=== PATIENT | female | born 1980 | race Caucasian/White ===

== ENCOUNTER 2020-01-22 07:10 | Outpatient (CLI) | payer BC ==
[2020-01-22 13:02] LABS: #Monocytes 0.3 thou/uL (0.11-0.59); #Neutrophils 4.4 thou/uL (1.40-6.50); %Basophils 0.5 % (0.0-1.0); %Eosinophils 0.3 % (0.0-10.0); %Monocytes 4.9 % (0.0-10.0); %Neutrophils 64.3 % (42.0-75.0); Hemoglobin 14.1 g/dL (12.0-16.0); Mean Corpuscular HGB CONC 33.9 g/dL (32.0-36.0); Mean Corpuscular Hemoglobin 30.8 pg (27.0-31.0); Mean Platelet Volume 7.9 fL (7.4-10.4); Platelet Count 202 thou/uL (130-400); RBC Distribution Width 11.5 % (11.5-14.5); Red Blood Cell (RBC) Count 4.58 mill/uL (4.20-5.40); White Blood Cell (WBC) Count 6.8 thou/uL (4.8-10.8)
[2020-01-22 13:24] LABS: Anion Gap 11 mmol/L (10-20); BUN (Urea Nitrogen) 10 mg/dL (7.0-18.7); Calc. Creatinine Clearance 0 mL/min (70-130); Carbon Dioxide 26 mmol/L (22-29); Chloride 104 mmol/L (98-107); Estimated GFR-MDRD Greater than 90; Glucose 101 mg/dL (70-105); Potassium 3.9 mmol/L (3.5-5.1); Sodium 137 mmol/L (136-145)
== END 2020-01-22 07:11 | disposition home or self-care (01) ==
LOC: LABBT 07:10
PROVIDERS: ATTEND Specialist
DX: Z01.812 Encounter for preprocedural laboratory examination (principal); G90.521 Complex regional pain syndrome I of right lower limb
CPT/HCPCS: 80048; 85025

== ENCOUNTER 2020-01-26 06:13 | Inpatient (IN) | payer BC ==
--- NOTE | 2020-01-26 06:17 | HP ---
HISTORY OF PRESENT ILLNESS: Ruth Ann Painter is a 39-year-old female, who fell down stairs in August 2017. Since that time, she has developed a severe pain syndrome in her right leg, where she has lost use of her right foot and knee. The pain is progressing up her leg to above the knee. The patient has been evaluated by multiple neurologists and neurosurgeons and pain management without relief. She has had CAT scans, MRI scans, trials of spinal cord stimulators, pain pump trials without relief. She has tried gabapentin and Lyrica with adverse side effects. She has severe hyperesthesias of her right leg to above her knee. The pain is currently somewhat controlled, although inadequately with [place] 10s, Xanax, oxycodone, progesterone, etc. She has exhausted her resources and now is speaking to me about amputation. Dr. Kuhn called and asked about doing a hip disarticulation. The patient does have mobility in her hip. She is hoping to save some of her thigh for prosthesis better function. The patient does go to [place] periodically for ketamine infusions to help with control of her pain. After receiving these, she feels much better for a period of time until the pain begins again and then she reports back. The patient and her are in my office today. 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 She hopes to return to work as soon as possible. She is 2, para 2, and her life has been altered by this pain syndrome. ALLERGIES: PENICILLIN AND DERMABOND, WHICH CAUSED RASH AND HIVES. SOCIAL HISTORY: Tobacco, none. Alcohol, none. MEDICATIONS: 1. Hydrocodone 10/325 daily. 2. Xanax 1 mg a day. 3. Xanax ER 1 mg at bedtime. 4. Oxycodone 20 mg at bedtime. 5. Nature-Throid daily. 6. Estradiol daily. 7. Progesterone daily. 8. Vitamin D daily. PAST MEDICAL HISTORY: Noncontributory except for the complex pain syndrome that she has. 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 Hysterectomy, total for endometriosis; laparoscopies prior to that; appendectomy prior to that; eardrum reconstruction. REVIEW OF SYSTEMS: Ten-point noncontributory. FAMILY HISTORY: Noncontributory. PHYSICAL EXAMINATION: GENERAL: She is in a wheelchair with right leg extension. She has severe hypesthesias of her right leg, foot, to above the knee. She has a right foot drop, she cannot move her ankle or knee. LUNGS: Clear to auscultation. CARDIAC: Regular rate and rhythm without murmur or gallop. ABDOMEN: Soft, nontender. NEUROLOGIC: Intact otherwise. SKIN: Discoloration of her skin below her knee, right. ASSESSMENT AND PLAN: Severe pain syndrome, reflex sympathetic dystrophy type, right leg with paralysis. She is disabled by the pain. The pain is progressive. Pain management is as described above. We have talked about right tguvk-jho-lhum amputation and talked about the level of amputation to alleviate her pain. We want the amputation high enough to alleviate her pain, but low enough to allow function of her prosthesis best. She understands risks and benefits, and consents. She will speak to anesthesiologist before the operation to consider anesthetic modalities to minimize her postoperative pain. Consideration of postoperative rehab can be given. She is already skilled in transfers and mobility and may be able to be discharged to home. We will plan this operation at a time considering her pain progression and the COVID situation. Job ID: [id number]
[2020-01-26] MEDS ORDERED: Acetaminophen 500 MG TAB ONE (06:25)
[2020-01-26] MEDS ORDERED: Levofloxacin 500 mg/D5W 100 ml Premix Bag ONE (06:45)
[2020-01-26] MEDS ORDERED: Ketorolac Tromethamine 30 MG/ML VIAL ONE (07:08)
[2020-01-26] MEDS ORDERED: Fentanyl 250 MCG/5 ML VIAL ONE (07:12)
[2020-01-26] MEDS ORDERED: HYDROmorphone 2 MG/ML VIAL ONE (07:13)
[2020-01-26] MEDS ORDERED: Ketamine 50 MG/ML (10ML VIAL) ONE (07:13)
[2020-01-26] MEDS ORDERED: Midazolam HCl 2 mg/2 ml Vial ONE (07:14)
[2020-01-26] MEDS ORDERED: Scopolamine 1.5 mg/72 hour Patch ONE (07:19)
[2020-01-26] MEDS ORDERED: Ropivacaine 0.2% HCl/PF 20 ML ONE (07:49)
[2020-01-26] MEDS ORDERED: Ondansetron ODT 4 MG TAB PO PRN (09:13)
[2020-01-26] MEDS ORDERED: Promethazine HCl 25 MG SUPP PR PRN (09:15)
[2020-01-26] MEDS ORDERED: Bupivacaine 0.25% 10 ML VIAL EPIDURAL PRN (09:15)
[2020-01-26] MEDS ORDERED: HYDROcodone/Acetaminophen 5/325 mg Tablet PO PRN (09:15)
[2020-01-26] MEDS ORDERED: diphenhydrAMINE 50 MG/ML VIAL IVP PRN (09:15)
[2020-01-26] MEDS ORDERED: Naloxone HCl 0.4 mg/ml Vial IV PRN (09:15)
[2020-01-26] MEDS ORDERED: diphenhydrAMINE 25 MG CAP PO PRN (09:15)
[2020-01-26] MEDS ORDERED: Zolpidem Tartrate 5 MG TAB PO PRN (09:15)
[2020-01-26] MEDS ORDERED: diphenhydrAMINE 50 MG/ML VIAL IM PRN (09:15)
[2020-01-26] MEDS ORDERED: Hydrocerin (Eucerin) Cream 120 gm Jar TOP PRN (09:15)
[2020-01-26] MEDS ORDERED: Naloxone HCl 0.4 mg/ml Vial IVP PRN (09:15)
[2020-01-26] MEDS ORDERED: Promethazine HCl 25 MG/ML VIAL IM PRN (09:15)
[2020-01-26] MEDS ORDERED: SUMATRIPTAN SUCCINATE 100 MG PO PRN (09:27)
[2020-01-26] MEDS ORDERED: HYDROcodone/Acetaminophen 10/325 mg Tablet PO PRN (09:27)
[2020-01-26] MEDS ORDERED: SUMAtriptan Succinate 50 MG TAB PO PRN (09:40)
[2020-01-26] MEDS ORDERED: Promethazine HCl 25 MG/ML VIAL ONE (09:48)
[2020-01-26] MEDS ORDERED: PROPOFOL 200 MG/20 ML VIAL ONE (10:31)
[2020-01-26] MEDS ORDERED: Rocuronium Bromide 10 MG/ML (10ML VIAL) ONE (10:31)
[2020-01-26] MEDS ORDERED: Glycopyrrolate 0.2 MG/ML 5 ML SYRINGE ONE (10:31)
[2020-01-26] MEDS ORDERED: Dexamethasone 20 MG/5 ML VIAL ONE (10:31)
[2020-01-26] MEDS ORDERED: Ondansetron PF 4 MG/2 ML Vial ONE (10:31)
[2020-01-26] MEDS ORDERED: EPHEDRINE 25 MG/5 ML SYRINGE ONE (10:31)
[2020-01-26] MEDS ORDERED: Lidocaine 1% PF 5 ML VIAL ONE (10:36)
[2020-01-26 11:13] VITALS: BMI 27.3
[2020-01-26] MEDS: Ketorolac Tromethamine 30 MG/ML VIAL IVP SCH ×3 (11:55→23:49)
[2020-01-26] MEDS ORDERED: Gabapentin 300 MG CAP PO SCH (12:00)
[2020-01-26] MEDS: HYDROcodone/Acetaminophen 5/325 mg Tablet PO PRN ×3 (12:04→21:05)
[2020-01-26] MEDS ORDERED: ALPRAZolam 1 MG TAB PO SCH ×3 (13:00→21:00)
--- NOTE | 2020-01-26 13:30 | OP ---
DATE OF PROCEDURE: 01/26/2020 PREOPERATIVE DIAGNOSES: Benign regional pain syndrome with right footdrop and inability to flex or extend the knee with severe hypesthesia just above the knee, exhausted nonsurgical management. POSTOPERATIVE DIAGNOSES: Benign regional pain syndrome with right footdrop and inability to flex or extend the knee with severe hypesthesia just above the knee, exhausted nonsurgical management. PROCEDURE PERFORMED: Right cjfex-wmz-hven amputation. ANESTHESIA: General, epidural. Muñiz catheter placed at the end of the procedure. ESTIMATED BLOOD LOSS: 150 mL. BLOOD TRANSFUSION: None. DESCRIPTION OF PROCEDURE: The patient was taken to the operating room where under general anesthesia, right lower extremity was prepared with ChloraPrep and draped in routine fashion. Incision was made for jrqnp-hen-jnia amputation with a fishmouth incision, carried through the skin, subcutaneous tissue, and fascia dividing muscular bundles with cautery, dividing site of nerve between clamps and ligating with 2-0 silk ties, dividing vascular bundles between clamps and ligating with 2-0 silk ties, and femur cleared the periosteum proximally, transected with a Gigli saw. All edges smoothed with a rasp, irrigated, hemostasis obtained with cautery. Fascia approximated with continuous suture of 2-0 Vicryl, skin with kip. Sterile dressing was applied. Job ID: [id number]
[2020-01-26] MEDS: oxyCODONE ER 20 MG TAB PO SCH (20:46)
[2020-01-26] MEDS: Enoxaparin Sodium 40 MG/0.4 ML SYRINGE SC SCH (20:46)
[2020-01-26] MEDS: Gabapentin 300 MG CAP PO SCH (20:46)
[2020-01-26] MEDS: Famotidine 20 MG TAB PO SCH (20:47)
[2020-01-26] MEDS: [UNRECOGNIZED DRUG - OTHER] PO PRN (20:48)
[2020-01-26] MEDS: ALPRAZOLAM 1 MG PO SCH (20:48)
[2020-01-26] MEDS: fentaNYL Citrate/PF 500 MCG, Bupivacaine 10 ML in Sodium Chloride 0.9% 80 ML EPIDURAL SCH (20:49)
[2020-01-26] MEDS ORDERED: oxyCODONE ER 20 MG TAB PO SCH (21:00)
[2020-01-26] MEDS: Estradiol 1 MG TAB PO SCH (21:05)
[2020-01-26] MEDS: Progesterone,Micronized 100 MG CAP PO SCH (21:18)
[2020-01-26] MEDS: Triple Antibiotic Ointment 30 GM TUBE TOP SCH (22:16)
[2020-01-26] MEDS: Ondansetron PF 4 MG/2 ML Vial IVP PRN (23:49)
[2020-01-27] MEDS: fentaNYL Citrate/PF 500 MCG, Bupivacaine 10 ML in Sodium Chloride 0.9% 80 ML EPIDURAL SCH ×3 (05:10→22:11)
[2020-01-27] MEDS: Ketorolac Tromethamine 30 MG/ML VIAL IVP SCH ×3 (05:15→18:58)
[2020-01-27 05:40] LABS: #Lymphocytes 2.4 thou/uL (1.20-3.40); #Monocytes 0.9 thou/uL (0.11-0.59); #Neutrophils 12.3 thou/uL (1.40-6.50); %Basophils 0.1 % (0.0-1.0); %Eosinophils 0.1 % (0.0-10.0); %Lymphocytes 15.2 % (21.0-51.0); %Monocytes 5.9 % (0.0-10.0); %Neutrophils 78.7 % (42.0-75.0); Hemoglobin 10.6 g/dL (12.0-16.0); Mean Corpuscular HGB CONC 33.8 g/dL (32.0-36.0); Mean Corpuscular Hemoglobin 30.7 pg (27.0-31.0); Mean Corpuscular Volume 90.9 fL (78.0-98.0); Mean Platelet Volume 7.8 fL (7.4-10.4); Platelet Count 308 thou/uL (130-400); RBC Distribution Width 11.4 % (11.5-14.5); Red Blood Cell (RBC) Count 3.45 mill/uL (4.20-5.40); White Blood Cell (WBC) Count 15.7 thou/uL (4.8-10.8)
[2020-01-27] MEDS ORDERED: Sodium Chloride 0.9% 1,000 ML IV SCH (06:45)
[2020-01-27] MEDS: Sodium Chloride 0.9% 1,000 ML IV SCH ×2 (06:48→17:53)
[2020-01-27] MEDS: HYDROcodone/Acetaminophen 5/325 mg Tablet PO PRN ×3 (06:50→18:57)
[2020-01-27] MEDS: Ondansetron PF 4 MG/2 ML Vial IVP PRN (06:50)
[2020-01-27] MEDS ORDERED: THYROID PORK PO SCH (09:00)
[2020-01-27] MEDS ORDERED: ALPRAZolam 1 MG TAB PO SCH ×2 (09:00)
[2020-01-27] MEDS ORDERED: Non-Formulary Item 1 EACH (Ascorbic Acid [Vitamin C] 1,000 MG) PO SCH (09:00)
[2020-01-27] MEDS: Thyroid 30 MG TAB PO SCH (09:00)
[2020-01-27] MEDS ORDERED: Non-Formulary Item 1 EACH (Estradiol [Estradiol] 2 MG) PO SCH (09:00)
[2020-01-27] MEDS ORDERED: PROGESTERONE MICRONIZED 200 MG PO SCH (09:00)
[2020-01-27] MEDS: Ascorbic Acid 500 mg Chewable Tablet PO SCH (09:25)
[2020-01-27] MEDS: Famotidine 20 MG TAB PO SCH ×2 (09:25→21:37)
[2020-01-27] MEDS: Gabapentin 300 MG CAP PO SCH ×3 (09:27→21:37)
[2020-01-27] MEDS: Triple Antibiotic Ointment 30 GM TUBE TOP SCH ×2 (10:41→21:39)
--- NOTE | 2020-01-27 10:46 | PRG ---
DATE OF SERVICE: 01/27/2020 SUBJECTIVE: Ms. Painter is doing well today. She reports that she is having a very little phantom limb pain. She states that when she receives Marcaine bolus through the epidural, she has good pain control. Otherwise, her postoperative pain is bothersome to her. Her benign brief regional pain complex pain is markedly improved, if not resolved, but she has postsurgical pain. Dr. Wei is managing her epidural. She is taking oral medications that she is taking as a baseline. With the patient's postoperative pain benign regional complex pain and treatment underway to prevent phantom limb pain and issues regarding changes in her medication in the future to wean her medications as possible. I suggested that she should follow up with Dr. Ramiro Wei as an outpatient to address these issues. She is very pleased with his care. OBJECTIVE: VITAL SIGNS: Temperature 97.9, pulse 72, blood pressure 141/86. This morning, her hemoglobin is 10.6. LUNGS: Clear to auscultation. CARDIAC: Regular rate and rhythm without murmur or gallop. ABDOMEN: Soft. Dressings dry. ASSESSMENT AND PLAN: Status post right above-knee amputation. Pain management per Dr. Wei. Muñiz catheter per Dr. Wei. We will remove this whenever her epidural infusions are diminished. Rehab consult expect her transfer later this week once the epidural benefits have exhausted and that was removed. Physical Therapy see her for transfers and mobilities and ambulation with a walker. She did have some nausea last night and was given some Zofran. This morning, IV fluids restarted and small bolus of IV fluids given. Plan to remove her AKA dressing in the morning and place a stump sand digger. [facility] has been asked to see her. Job ID: [id number]
[2020-01-27] MEDS: [UNRECOGNIZED DRUG - OTHER] PO PRN ×2 (10:47→21:40)
[2020-01-27] MEDS: ALPRAZolam 1 MG TAB PO SCH (12:35)
[2020-01-27] MEDS: Progesterone,Micronized 100 MG CAP PO SCH (21:36)
[2020-01-27] MEDS: Estradiol 1 MG TAB PO SCH (21:37)
[2020-01-27] MEDS: Enoxaparin Sodium 40 MG/0.4 ML SYRINGE SC SCH (21:37)
[2020-01-27] MEDS: oxyCODONE ER 20 MG TAB PO SCH (21:38)
[2020-01-27] MEDS: ALPRAZOLAM 1 MG PO SCH (21:39)
[2020-01-28] MEDS: Ketorolac Tromethamine 30 MG/ML VIAL IVP SCH ×2 (00:48→05:28)
[2020-01-28] MEDS: HYDROcodone/Acetaminophen 5/325 mg Tablet PO PRN ×4 (03:20→22:21)
[2020-01-28] MEDS: Sodium Chloride 0.9% 1,000 ML IV SCH ×2 (05:26→12:10)
[2020-01-28] MEDS: fentaNYL Citrate/PF 500 MCG, Bupivacaine 10 ML in Sodium Chloride 0.9% 80 ML EPIDURAL SCH ×3 (08:27→22:56)
[2020-01-28] MEDS: Gabapentin 300 MG CAP PO SCH ×3 (09:14→20:52)
[2020-01-28] MEDS: Famotidine 20 MG TAB PO SCH ×2 (09:14→20:52)
[2020-01-28] MEDS: Ascorbic Acid 500 mg Chewable Tablet PO SCH (09:14)
[2020-01-28] MEDS: Triple Antibiotic Ointment 30 GM TUBE TOP SCH ×2 (10:24→20:52)
[2020-01-28] MEDS: Thyroid 30 MG TAB PO SCH (10:24)
[2020-01-28] MEDS: ALPRAZolam 1 MG TAB PO SCH (11:42)
[2020-01-28] MEDS: [UNRECOGNIZED DRUG - OTHER] PO PRN ×2 (11:42→22:22)
--- NOTE | 2020-01-28 14:27 | PRG ---
DATE OF SERVICE: 01/28/2020 SUBJECTIVE: Ms. Painter is doing well today, 2 days status post right AKA for benign regional pain syndrome and right footdrop. She reports absence of her regional pain syndrome pain. She states her surgical postoperative pain is improving, epidural is effective. Dr. Ramiro Wei has adjusted the epidural infusion dose. The patient is doing much better today. Her surgical dressings were removed and she does have some blistering of the skin. This is clear serous. There is no evidence of infection. She had sponge bath. She has a Muñiz catheter in place. OBJECTIVE: LUNGS: Clear to auscultation. CARDIAC: Regular rate and rhythm without murmur or gallop. ABDOMEN: Soft, nontender. EXTREMITIES: As noted. ASSESSMENT AND PLAN: Status post right AKA for benign regional pain complex syndrome. Plan to wash the right AKA stump daily with soap and water in a shower chair. We will order a walker for her at home. Plan to discharge in the next 2 to 3 days when she has achieved maximum benefit from the epidural. This will be determined by Dr. Ramiro Wei, Pain Management. Muñiz catheter will be removed whenever epidural dose is decreased and the patient's mobility is better. Overall, she is doing well. Job ID: [id number]
[2020-01-28] MEDS: ALPRAZOLAM 1 MG PO SCH (20:50)
[2020-01-28] MEDS: Enoxaparin Sodium 40 MG/0.4 ML SYRINGE SC SCH (20:50)
[2020-01-28] MEDS: Estradiol 1 MG TAB PO SCH (20:51)
[2020-01-28] MEDS: Progesterone,Micronized 100 MG CAP PO SCH (20:51)
[2020-01-28] MEDS: oxyCODONE ER 20 MG TAB PO SCH (20:51)
[2020-01-29] MEDS: Sodium Chloride 0.9% 1,000 ML IV SCH ×2 (01:30→07:22)
[2020-01-29] MEDS: fentaNYL Citrate/PF 500 MCG, Bupivacaine 10 ML in Sodium Chloride 0.9% 80 ML EPIDURAL SCH (06:10)
[2020-01-29] MEDS: Thyroid 30 MG TAB PO SCH (09:14)
[2020-01-29] MEDS: Famotidine 20 MG TAB PO SCH ×2 (09:15→20:26)
[2020-01-29] MEDS: HYDROcodone/Acetaminophen 5/325 mg Tablet PO PRN ×4 (09:15→22:59)
[2020-01-29] MEDS: Ascorbic Acid 500 mg Chewable Tablet PO SCH (09:15)
[2020-01-29] MEDS: Ondansetron PF 4 MG/2 ML Vial IVP PRN (09:15)
[2020-01-29] MEDS: Gabapentin 300 MG CAP PO SCH ×3 (09:15→20:26)
[2020-01-29] MEDS: Triple Antibiotic Ointment 30 GM TUBE TOP SCH ×2 (09:40→20:27)
[2020-01-29] MEDS: ALPRAZolam 1 MG TAB PO SCH (12:45)
--- NOTE | 2020-01-29 12:55 | PRG ---
DATE OF SERVICE: 01/29/2020 Ms. Painter is doing very well today. I saw her earlier this morning, but since that visit, Dr. Wei has seen her. Her epidural had worked its way out, and by this morning, Dr. Wei subsequently removed it. Plan is to remove her Muñiz catheter today. The patient has good pain control orally. Plan at this time is to have physical therapy, occupational therapy work with her today and plan discharge home tomorrow. She should wash her AKA stump daily with soap and water, shower bath, shower chair, and placed antibiotic ointment, Telfa, and a stump pleat taper. The stump pleat taper is very comfortable for her. Her pain control is very good. Her benign regional pain complex pain is minimal, and her postsurgical pain is improving. 98 degrees, 106, 155/83. The patient this morning is having a migraine, emesis, which commonly affects her. She is taking her Imitrex and Zofran. Plan is to discharge to home tomorrow. She has been evaluated by rehab, but she has done so well on therapy. She wants to go home. Outpatient therapy will be arranged. Dr. Ramiro Wei will to her Pain Management and write appropriate prescriptions for discharge tomorrow. She would plan to see me in the office in about 2 to 2-1/2 weeks for staple removal. She will follow up in the future after that visit with [facility] to begin planning for the prosthesis. Job ID: [id number]
[2020-01-29] MEDS ORDERED: Morphine 2 MG/ML SYRINGE SLOW IVP PRN (15:15)
[2020-01-29] MEDS: [UNRECOGNIZED DRUG - OTHER] PO PRN ×2 (18:40→23:00)
[2020-01-29] MEDS: Progesterone,Micronized 100 MG CAP PO SCH (20:25)
[2020-01-29] MEDS: Enoxaparin Sodium 40 MG/0.4 ML SYRINGE SC SCH (20:25)
[2020-01-29] MEDS: Estradiol 1 MG TAB PO SCH (20:26)
[2020-01-29] MEDS: oxyCODONE ER 20 MG TAB PO SCH (20:27)
[2020-01-29] MEDS: ALPRAZOLAM 1 MG PO SCH (21:05)
[2020-01-30] MEDS: HYDROcodone/Acetaminophen 5/325 mg Tablet PO PRN (07:34)
[2020-01-30 08:09] VITALS: BP 118/78; TEMP 98.4
[2020-01-30] MEDS: Gabapentin 300 MG CAP PO SCH (08:28)
[2020-01-30] MEDS: Famotidine 20 MG TAB PO SCH (08:28)
[2020-01-30] MEDS: Ascorbic Acid 500 mg Chewable Tablet PO SCH (08:29)
[2020-01-30] MEDS: Thyroid 30 MG TAB PO SCH (08:29)
--- NOTE | 2020-01-30 08:50 | DIS ---
DATE OF ADMISSION: 01/26/2020 DATE OF DISCHARGE: 01/30/2020 DISCHARGE DIAGNOSES: Benign regional pain complex syndrome with right foot drop and essentially paralyzed right leg with severe hypoesthesias refractory to multiple interventions including outpatient q.2 weeks ketamine infusions, multiple spinal cord stimulator, and epidural infusion trials without success, in need of amputation procedure, evaluation by Pain Management, Dr. Wei preoperatively, placed on an epidural for perioperative control of her severe pain syndrome. Right ktoqn-aew-vdsh amputation, removal of epidural on 01/28, removal of Muñiz on 01/28. DISCHARGE MEDICATIONS: The patient will continue: 1. Xanax 1 mg p.o. at noon and at bedtime. 2. Vitamin C. 3. Vitamin D3. 4. Benadryl p.r.n. 5. Estradiol. 6. Gabapentin 600 mg t.i.d. 7. [place] 5/325, which she has at home p.r.n. pain. 8. Ketamine rony 100 mg lozenges p.r.n. q.2 hours. 9. OxyContin 20 mg at bedtime scheduled. 10. Synthroid 50 mcg a day. 11. Ambien 5 mg a day. FOLLOWUP: Follow up Dr. Betancur in 2 to 3 weeks, staple removal. Daily, she will wash her AKA stump with soap and water in shower chair, apply antibiotic ointment and stump emergency physician. Follow up with Dr. Ramiro Wei in the future. Follow up with Dr. Tac[place] Kuhn in the future. HOSPITAL COURSE: A 39-year-old female, fell down stairs 2-1/2 years ago without fractures and without soft tissue injury, developed a severe pain syndrome resulting in right foot drop and inability to flex or extend her knee with severe hypoesthesias, mobile with a motorized scooter, refractory to all nonsurgical treatment, now presents for amputation. She had epidural placed preoperatively, left in place until yesterday when it was removed, it had migrated out and become ineffective. Dr. Wei saw her in this hospitalization and will continue to see her to help manage her medications postoperatively. The patient has done very well with her regional pain complex symptoms resolved and only dealing with her postoperative pain. She was evaluated by therapy and did so well with walker and crutch ambulation that she has been discharged home. As she is too independent to be considered for rehab, she has outpatient therapy ordered. She will follow up in my office in 2 to 3 weeks for staple removal and follow up with Dr. Wei in the near future. Job ID: [id number]
== END 2020-01-30 10:47 | disposition home or self-care (01) | DRG 42 ==
LOC: SDC 06:13 → SURG A 08:43
PROVIDERS: ADMIT Specialist; ATTEND Specialist
PROC: 0Y6C0Z1 Detachment at Right Upper Leg, High, Open Approach (ICD-10-PCS; principal; 2020-01-26)
DX: G90.521 Complex regional pain syndrome I of right lower limb (principal); M21.371 Foot drop, right foot; Z88.0 Allergy status to penicillin; Z88.8 Allergy status to other drugs, medicaments and biological substances; Z79.899 Other long term (current) drug therapy; Z90.49 Acquired absence of other specified parts of digestive tract; Z90.710 Acquired absence of both cervix and uterus
CPT/HCPCS: 36415; 85025; 88307; J1100; J1170; J1650; J1885; J1956; J2001; J2250; J2270; J2405; J2550; J2704; J2795; J3010; J3490

== ENCOUNTER 2020-05-07 13:41 | Outpatient (CLI) | payer BC ==
--- NOTE | 2020-05-07 17:01 | CT ---
CT Lower Ext Rt W Con History: Amputation. CRPS. Comparison: None. Findings: Prior right above the knee amputation. Amputation site is sharp. No erosions. Minimal heter otopic ossification anteroinferomedially. No drainable fluid collections appreciated. Adequate soft tissue flap. Redundant sciatic nerve without definite neuroma. Redundant fascia around the stump. Visualized intrapelvic soft tissues are unremarkable. Femoral artery is patent. Impression: Intact right AKA stump without drainable fluid collection, significant neuroma, or defini te evidence of pyomyositis. Adequate overlying soft tissue flap.
== END 2020-05-07 13:42 | disposition home or self-care (01) ==
LOC: SCSCT 13:41
PROVIDERS: ATTEND Specialist
DX: Z47.81 Encounter for orthopedic aftercare following surgical amputation (principal); Z89.611 Acquired absence of right leg above knee

== ENCOUNTER 2021-06-17 09:57 | Emergency (ER) | payer BC ==
[2021-06-17] MEDS ORDERED: Iopamidol-370 76% 500 ML 1 ML ONE (11:26)
[2021-06-17 13:09] LABS: #Eosinphils 0.2 thou/uL (0.0-0.7); #Lymphocytes 1.7 thou/uL (1.20-3.40); #Monocytes 0.6 thou/uL (0.11-0.59); #Neutrophils 12.5 thou/uL (1.40-6.50); %Basophils 0.3 % (0.0-1.0); %Eosinophils 1.1 % (0.0-10.0); %Lymphocytes 11.5 % (21.0-51.0); %Monocytes 4.2 % (0.0-10.0); %Neutrophils 82.9 % (42.0-75.0); Hemoglobin 13.3 g/dL (12.0-16.0); Mean Corpuscular HGB CONC 35.7 g/dL (32.0-36.0); Mean Corpuscular Hemoglobin 31.8 pg (27.0-31.0); Mean Corpuscular Volume 88.9 fL (78.0-98.0); Platelet Count 222 thou/uL (130-400); RBC Distribution Width 11.8 % (11.5-14.5); Red Blood Cell (RBC) Count 4.19 mill/uL (4.20-5.40); White Blood Cell (WBC) Count 15.1 thou/uL (4.8-10.8)
[2021-06-17 13:24] LABS: BHCG - Serum Negative (NEGATIVE); Pregs Control Background? CLEAR/WHITE (CLR/WHITE); Pregs Control Bar Appear? YES (CONTROL BAR)
[2021-06-17 13:33] LABS: ALT (SGPT) 88 U/L (8-55); AST (SGOT) 67 U/L (5-34); Albumin 3.9 g/dL (3.5-5.0); Alkaline Phosphatase 159 U/L (40-110); Anion Gap 13 mmol/L (10-20); BUN (Urea Nitrogen) 5 mg/dL (7.0-18.7); Bilirubin, Total 0.4 mg/dL (0.2-1.2); Calc. Creatinine Clearance 0 mL/min (70-130); Calcium 9.5 mg/dL (7.8-10.44); Carbon Dioxide 24 mmol/L (22-29); Chloride 102 mmol/L (98-107); Glucose 92 mg/dL (70-105); Potassium 4.2 mmol/L (3.5-5.1); Protein, Total 6.9 g/dL (6.0-8.3); Sodium 135 mmol/L (136-145)
== END 2021-06-17 16:27 | disposition home or self-care (01) ==
LOC: ERS 09:57
DX: U07.1 COVID-19 (principal); J12.82 Pneumonia due to coronavirus disease 2019; R49.0 Dysphonia; I10 Essential (primary) hypertension; Z79.899 Other long term (current) drug therapy
CPT/HCPCS: 36415; 70491; 71045; 71275; 80053; 84703; 85025; 85379; 94760; Q9967

== ENCOUNTER 2023-02-02 08:01 | Outpatient (CLI) | payer BC | END 2023-02-02 08:02 | disposition home or self-care (01) | LOC: SCSMRI 08:01 | DX: G90.523 Complex regional pain syndrome I of lower limb, bilateral (principal) | CPT/HCPCS: 82565 ==